=== PATIENT | female | born 1980 | race Caucasian/White ===

== ENCOUNTER 2018-03-01 12:59 | Emergency (ER) | payer MEDICAID | END 2018-03-01 15:50 | disposition home or self-care (01) | LOC: FTE 12:59 | DX: N75.1 Abscess of Bartholin's gland (principal) | CPT/HCPCS: 56420; 99284-25 ==

== ENCOUNTER 2018-05-03 13:42 | Emergency (ER) | payer MEDICAID ==
[2018-05-03] MEDS: LIDOCAINE 1% (MDV) 10 ML INJ INFIL (14:26)
== END 2018-05-03 15:09 | disposition home or self-care (01) ==
LOC: FTE 13:42
DX: N75.0 Cyst of Bartholin's gland (principal)
CPT/HCPCS: 56420; 99284-25

== ENCOUNTER 2019-03-17 08:14 | Emergency (ER) | payer MEDICAID ==
[2019-03-17] MEDS: LIDOCAINE 1% (MPF) 5 ML VIAL INJ (08:38)
== END 2019-03-17 09:32 | disposition home or self-care (01) ==
LOC: FTE 09:32
DX: N76.4 Abscess of vulva (principal)
CPT/HCPCS: 56405; 99283-25

== ENCOUNTER 2019-06-15 11:00 | Emergency (ER) | payer MEDICAID ==
[2019-06-15] MEDS: LIDOCAINE 1% (MPF) 5 ML VIAL INJ (11:49)
== END 2019-06-15 12:29 | disposition home or self-care (01) ==
LOC: FTE 12:29
DX: N76.4 Abscess of vulva (principal)
CPT/HCPCS: 56405; 99282-25